=== PATIENT | male | born 1970 | race Caucasian/White ===

== ENCOUNTER 2020-09-28 16:19 | Outpatient (CLI) | payer BC, SELFPAY ==
--- NOTE | ~2020-09-28 | US_ITS ---
EXAMINATION: US venous doppler [facility] DATE: 09/28/2020 16:40 INDICATION: Left lower limb swelling TECHNIQUE: Payne scale images without and with compression and Doppler images of the left lower extrem ity veins were obtained. COMPARISON: None FINDINGS: The left common femoral vein, profunda femoral vein, femoral vein, popliteal vein, peroneal trunk, posterior tibial veins, and greater saphenous vein are patent. IMPRESSION: 1. Patent left lower extremity veins. No evidence of deep venous thrombosis. Reviewed, dictated and finalized at location A.
== END 2020-09-28 16:20 | disposition home or self-care (01) ==
PROVIDERS: PCP Family Medicine; Visit Provider Family Medicine
DX: R60.0 Localized edema (principal)
CPT/HCPCS: 93971

== ENCOUNTER 2021-04-27 13:42 | Emergency (ER) | payer BC, SELFPAY ==
[2021-04-27 13:52] VITALS: BP 137/89; PULSE 73; RESP 16; TEMP 36.6; O2SAT 98
--- NOTE | 2021-04-27 14:50 | ED.WOUNDLAC ---
HPI - Wound/Laceration General Chief Complaint: Wound/Laceration Stated Complaint: R HAND LACERATION Time Seen by Provider: 04/27/21 14:29 Source: patient and RN notes reviewed Mode of arrival: ambulatory Limitations: no limitations History of Present Illness HPI narrative: Patient presents today with a laceration to his right hand that was sustained just prior to arrival. Patient was working kneeling a floor joist when he cut his hand on a nail that was sticking out of a different floor joist. He is up-to-date on his tetanus vaccine. Denies numbness or tingling in the hand or fingers. He is currently pain-free. He has tried no [id number] treatment prior to arrival. Related Data Allergies Allergy/AdvReac Type Severity Reaction Status Date / Time No Known Allergies Allergy Verified 02/07/21 15:06 Review of Systems Review of Systems: CONSTITUTIONAL: Denies body aches, fever, chills, or sweats. EYES: Denies visual changes, redness, or discharge. ENT: Denies rhinorrhea, congestion, sore throat, or otalgia. CARDIOVASCULAR: Denies chest pain, palpitations, or edema. RESPIRATORY: Denies cough or dyspnea. GASTROINTESTINAL: Denies abdominal pain, nausea, vomiting, or diarrhea. GENITOURINARY: Denies dysuria or hematuria. SKIN: Denies rash, itching. + Laceration to right hand MUSCULOSKELETAL: Denies back pain, joint pain, or myalgia. NEUROLOGIC: Denies headache, numbness, tingling, or weakness. PSYCH: Denies depression or anxiety. [facility] Past Medical History Medical History BMI 25.0-25.9,adult BMI 26.0-26.9,adult Leg edema, left Family History Family History Father COVID-19 Mother COVID-19 Tobacco abuse Sibling No problems noted. Social History Social History Tobacco type: cigarettes Second hand tobacco smoke exposure: No Alcohol intake: current Substance use: never Substance use type: does not use Additional occupation/education comments: remodeling Gender identity (if verbalized by the patient): Male Comments At time of signature, I have reviewed and agree with nursing past medical, surgical, social and family history unless otherwise noted. Please see nursing chart for further information. There is no relevant family history pertinent to the presenting complaint Exam Narrative: GENERAL: Well-appearing, well-nourished, and in no acute distress. HEAD: Normocephalic, atraumatic. EYES: EOMI. No redness or drainage. Conjunctivae normal. ENT: Mucous membranes pink and moist. NECK: Normal AROM. CHEST: No respiratory distress. EXTREMITIES: 2.5 cm full-thickness flap laceration to the dorsum of the right hand at the distal portion of the first metacarpal. No active bleeding. Distal sensation intact. Capillary refill normal. Full AROM against resistance. SKIN: Warm, dry, no rash. Capillary refill normal. Normal skin turgor. NEURO: No focal deficits. Alert and oriented x3. Gait steady. PSYCH: Normal affect. No signs of depression or anxiety. Course Vital Signs Vital signs: Vital Signs Temperature 98 F 04/27/21 13:52 Pulse Rate 73 04/27/21 13:52 Respiratory Rate 16 04/27/21 13:52 Blood Pressure 137/89 04/27/21 13:52 Pulse Oximetry 98 04/27/21 13:52 Temperature 98 F 04/27/21 13:52 Pulse Rate 73 04/27/21 13:52 Respiratory Rate 16 04/27/21 13:52 Blood Pressure 137/89 04/27/21 13:52 Pulse Oximetry 98 04/27/21 13:52 Reviewed. Pt has been instructed to follow up with his PCP regarding his elevated blood pressure today. Procedures Laceration Laceration 1: Date: 04/27/21 Time: 14:51 Site: hand Side (If applicable): right Size (cm): 2.5 Description: flap Depth: simple, single layer Local Anesthetic: lidocaine 1%
== END 2021-04-27 15:03 | disposition home or self-care (01) ==
PROVIDERS: Emergency Provider Nurse Practitioner; PCP Family Medicine
DX: S61.411A Laceration without foreign body of right hand, initial encounter (principal); W45.0XXA Nail entering through skin, initial encounter
CPT/HCPCS: 12001; 99212; G0463

== ENCOUNTER → 2023-01-22 15:52 | Outpatient (CLI) | payer OTHER, SELFPAY ==
--- NOTE | ~2023-01-22 | XR_ITS ---
EXAMINATION: XR chest 2V Exam Date/Time: 01/22/2023 16:12 CDT HISTORY: R06.2 - Wheezing Comparison: 09/17/2006. RESULT: Lines, tubes, and devices: None. Lungs and pleura: Calcified granulomas. No focal consolidation. Hemidiaphragm flattening. Mild diffu se reticulonodular opacities. Cardiomediastinal silhouette: Stable. Other: No acute osseous or upper abdominal finding. IMPRESSION: No acute cardiopulmonary process. Hyperinflation which can accompany emphysematous change in the appr opriate clinical context. Pulmonary opacities may represent bronchiolitis, as can be seen with atypic al infection, asthma, aspiration, and small airways disease. Reviewed, dictated and finalized at location K. IMPRESSION: No acute cardiopulmonary process. Hyperinflation which can accompany emphysemat ous change in the appropriate clinical context. Pulmonary opacities may represe nt bronchiolitis, as can be seen with atypical infection, asthma, aspiration, a nd small airways disease.
== END ==
PROVIDERS: PCP Nurse Practitioner Family; Visit Provider Nurse Practitioner Family
DX: R06.2 Wheezing (principal)
CPT/HCPCS: 71046

== ENCOUNTER → 2023-03-14 14:32 | Outpatient (CLI) | payer OTHER, SELFPAY ==
--- NOTE | ~2023-03-14 | XR_ITS ---
XR knee LT min 4V DATE: 03/14/2023 15:03 INDICATION: Left knee pain TECHNIQUE: AP and lateral views of the left knee COMPARISON: None FINDINGS: There is an intramedullary lamar of the left femur extending from the intertrochanteric area into the distal femoral metaphysis. There are 2 distal transverse through screws, both of which appear to be fractured. There is a healed fracture of the mid to distal femoral shaft. There is osteopenia. No fracture or dislocation or joint effusion is noted in the left knee joint. There is mild periartic ular spurring at the patellofemoral joint and slight periarticular spurring of the medial tibial tota l toe. Joint spaces appear well preserved at the medial and lateral compartments. No radiopaque intra -articular loose body or chondrocalcinosis. IMPRESSION: Intramedullary lamar of the femur with 2 distal fractured through screws; healed mid to dis amalia femoral shaft fracture Mild osteoarthritis at the knee joint Reviewed, dictated and finalized at location A. IMPRESSION: Intramedullary lamar of the femur with 2 distal fractured through scr ews; healed mid to distal femoral shaft fracture Mild osteoarthritis at the knee joint
== END ==
PROVIDERS: PCP Physician Assistant Medical; Visit Provider Physician Assistant Medical
DX: M17.12 Unilateral primary osteoarthritis, left knee (principal)
CPT/HCPCS: 73564

== ENCOUNTER → 2023-07-11 14:01 | Outpatient (CLI) | payer OTHER, SELFPAY ==
--- NOTE | ~2023-07-11 | XR_ITS ---
XR chest 2V DATE: 07/11/2023 14:25 INDICATION: Shortness of breath TECHNIQUE: 2 views COMPARISON: 01/22/2023 2 view chest FINDINGS: Normal heart size. Mild aortic unfolding. No hilar or mediastinal enlargement. Minimal right apical capping. Mild to moderate bilateral hyperinflation. No pulmonary infiltrate or c onsolidation, pleural effusion or pulmonary vascular congestion or pneumothorax is detected. Mild dextroscoliosis of the thoracic spine. IMPRESSION: Mild to moderate bilateral hyperinflation. No active cardiopulmonary disease Reviewed, dictated and finalized at location B. WORKING [employer] IMPRESSION: Mild to moderate bilateral hyperinflation. No active cardiopulmonar y disease
== END ==
PROVIDERS: PCP Nurse Practitioner Family; Visit Provider Nurse Practitioner Family
DX: R06.02 Shortness of breath (principal); R05.9 Cough, unspecified; R91.8 Other nonspecific abnormal finding of lung field
CPT/HCPCS: 71046

== ENCOUNTER 2023-11-28 17:58 | Emergency (ER) | payer OTHER, SELFPAY ==
--- NOTE | ~2023-11-28 | XR_ITS ---
XR wrist LT min 3V Ordering provider: Jennifer Leach APRN History: . swelling,joint pain, no trauma . Comparison: None. FINDINGS: BONES: No acute fracture or dislocation. No definite scaphoid fracture. Cystic changes are seen in t he scaphoid and capitate bones. JOINT SPACES: Narrowing of the joint between the scaphoid and trapezium bones. Otherwise, Well mainta ined. SOFT TISSUES: Normal. IMPRESSION: No acute osseous abnormality left wrist. Reviewed, dictated and finalized at location A.
--- NOTE | 2023-11-28 18:03 | ED.UPPEXIN ---
HPI - Extremity Injury (Upper) General Chief Complaint: Extremity Problem,Nontraumatic Stated Complaint: lt wrist pain Time Seen by Provider: 11/28/23 18:03 Source: patient Mode of arrival: ambulatory Limitations: no limitations History of Present Illness HPI narrative: Patient is a 53-year-old male who presents with left wrist pain and swelling that started yesterday. Denies any obvious trauma but it does hurt to move. Only reports mild pain on palpation. Denies any history of gout. Has taken ibuprofen with no relief of symptoms. Denies any numbness, tingling or weakness to hand or fingers. Related Data Home Medications Medication Instructions Recorded Confirmed albuterol sulfate 90 mcg/actuation 2 puff inhalation PRN PRN 11/28/23 11/28/23 aerosol inhaler Shortness Of Breath Or Wheezing minoxidil 2.5 mg tablet 1.25 mg PO DAILY 11/28/23 11/28/23 omeprazole 40 mg capsule,delayed 40 mg PO DAILY 11/28/23 11/28/23 release Allergies Allergy/AdvReac Type Severity Reaction Status Date / Time [id number] Reductase AdvReac Intermediate Joint Pain Verified 11/28/23 18:06 Inhibitor Review of Systems Review of Systems: All systems reviewed & are unremarkable except as noted in HPI and below Constitutional: Constitutional: Denies body ache(s), Denies chills, Denies fatigue, Denies fever(s), Denies headache(s), Denies malaise and Denies weakness Eyes: Eyes: Denies blurry vision, Denies irritation and Denies loss of vision ENT: Denies otalgia, Denies headache(s), Denies nasal discharge, Denies sinus pain and Denies sore throat Cardiovascular: Cardiovascular: Denies chest pain, Denies irregular heart rhythm and Denies dyspnea Respiratory: Respiratory: Denies dyspnea Gastrointestinal: Gastrointestinal: Denies abdominal pain, Denies melena, Denies hematochezia, Denies diarrhea, Denies nausea and Denies vomiting Musculoskeletal: Musculoskeletal: Denies back pain, Denies myalgias, Reports arthralgias and Reports joint swelling Integumentary/Breasts: Skin/Breast: Denies pruritus and Denies rash Neurologic: Denies headache(s), Denies loss of vision and Denies weakness Psychiatric: Psychiatric: Reports no additional psychiatric complaints Endocrine: Endocrine: Denies fatigue PMFSH Past Medical History Medical History BMI 26.0-26.9,adult Leg edema, left Overweight with body mass index (BMI) of 28 to 28.9 in adult Family History Family History Father COVID-19 Hyperlipemia Mother COVID-19 Tobacco abuse Sibling Hyperlipemia Social History Social History Smoking status: Former smoker Tobacco type: cigarettes Second hand tobacco smoke exposure: No Alcohol intake: current Substance use: never Substance use type: does not use Lack of Transportation: No Lack of Food: Never True Current Housing: I Have Housing Concerned About Future Housing: No Difficulty Paying Gas/Electric Bills: No Difficulty Paying for Meds: No Currently Unemployed: No Education: High School Diploma/GED Difficulty w/ Childcare or Family Care: No Living arrangements: with family 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 There is no relevant family history pertinent to the presenting complaint. Exam Const: General: cooperative, healthy appearing, comfortable, no acute distress and well nourished Nutritional Appearance: well nourished Orientation/consciousness: patient oriented x3 Limitations: no limitations HENMT: Head: normal to inspection, normocephalic and atraumatic Ears: hearing grossly normal bilaterally and external ears jayce
[2023-11-28 18:13] VITALS: BP 129/90; PULSE 83; RESP 16; TEMP 37.2; O2SAT 97
== END 2023-11-28 19:09 | disposition home or self-care (01) ==
PROVIDERS: Emergency Provider Nurse Practitioner Family; PCP Family Medicine
DX: M19.032 Primary osteoarthritis, left wrist (principal); Z87.891 Personal history of nicotine dependence
CPT/HCPCS: 73110; 99213; G0463

== ENCOUNTER 2023-12-03 15:49 | Outpatient (CLI) | payer OTHER, SELFPAY ==
[2023-12-03 17:20] LABS: Rheumatoid Factor > 120.0 IU/ML (<12)
[2023-12-03 17:22] LABS: Erythrocyte Sedimentation Rate 51 mm/hr (0-20)
[2023-12-03 17:33] LABS: Uric Acid 5.1 mg/dL (3.5-8.5)
[2023-12-04 22:23] LABS: HLA B27 NEGATIVE (NEGATIVE)
[2023-12-06 10:43] LABS: Anti Nuclear Antibody Pattern Nuclear, Homogeneous
== END 2023-12-03 15:50 | disposition home or self-care (01) ==
LOC: ANHLAB 15:51
PROVIDERS: PCP Family Medicine; Visit Provider Podiatrist Foot & Ankle Surgery
DX: M06.9 Rheumatoid arthritis, unspecified (principal); M10.9 Gout, unspecified
CPT/HCPCS: 36415; 84550; 85652; 86038; 86039; 86140; 86430; 86812